=== PATIENT | male | born 1970 | race Caucasian/White ===

== ENCOUNTER 2018-05-05 06:56 | Inpatient (IN) | payer OTHER ==
[2018-04-16 19:08] VITALS: BMI 29.5
[2018-05-05] MEDS ORDERED: TAMSULOSIN HCL 0.4 MG CAP.ER.24H (FP) ONE (08:17)
[2018-05-05] MEDS ORDERED: BUPIVACAINE LIPOSOME/PF (EXPAREL) 266 MG/20 ML VIAL ONE (09:35)
[2018-05-05] MEDS ORDERED: MIDAZOLAM HCL 2 MG/2 ML SINGLE DOSE VIAL ONE (09:35)
[2018-05-05] MEDS ORDERED: BUPIVACAINE HCL/PF (5 MG/ML) 30 ML VIAL IJ ONE (09:35)
[2018-05-05] MEDS ORDERED: LIDOCAINE HCL/PF 2% SDV 5ML VIAL ONE (10:13)
--- NOTE | 2018-05-05 10:13 | HP ---
DATE OF ADMISSION: 05/05/2018 REASON FOR ADMISSION: Chronically incarcerated ventral hernia. BRIEF HISTORY: This is a 48-year-old gentleman with a known chronically large ventral hernia. It is causing him discomfort and he now wishes to have this repaired. PAST MEDICAL HISTORY: Significant for coronary disease, hypertension, diabetes. PAST SURGICAL HISTORY: Bilateral laparoscopic inguinal herniorrhaphy (Vance). MEDICATIONS: None. ALLERGIES: PENICILLIN. 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 He does not smoke nor drink. PHYSICAL EXAMINATION:Abdomen: Soft, nontender, nondistended. He has an upper midline diastasis. He has a large chronically incarcerated ventral hernia. The skin overlying the hernia is mildly thin. IMPRESSION/PLAN: Large chronically incarcerated ventral hernia. Patient is symptomatic from this and therefore we will plan for an operative repair. Due to the size of the hernia the patient will most likely require component separation as well, but this will be determined at the time of surgery. Please refer to my H & P dictated back in January for complete details. Charlotte PETTY [id number]
[2018-05-05] MEDS ORDERED: PROPOFOL 20 ML ONE (10:14)
[2018-05-05] MEDS ORDERED: DEXAMETHASONE SOD PHOSPHATE 4 MG/1 ML VIAL ONE (10:23)
[2018-05-05] MEDS ORDERED: ceFAZolin SODIUM 1 GM VIAL ONE ×2 (10:23→10:30)
[2018-05-05] MEDS ORDERED: ONDANSETRON 4 MG/2 ML VIAL ONE (10:23)
[2018-05-05] MEDS ORDERED: HYDROmorphone HCL/PF 1 MG/ML AMP ONE ×2 (10:27→11:46)
[2018-05-05] MEDS ORDERED: oxyCODONE HCL 5 MG TABLET PO PRN (12:22)
[2018-05-05] MEDS ORDERED: morphine CARPU-JECT 10 MG/1 ML DISP.SYRIN IVPB PRN (12:22)
[2018-05-05] MEDS ORDERED: ONDANSETRON 4 MG/2 ML VIAL IVPUSH PRN (12:27)
--- NOTE | 2018-05-05 13:09 | OP ---
DATE OF OPERATION: 05/05/2018 PREOPERATIVE DIAGNOSIS: A chronically incarcerated ventral hernia. POSTOPERATIVE DIAGNOSIS: A chronically incarcerated ventral hernia. PROCEDURE: Open repair of chronically incarcerated ventral incisional hernia with mesh, bilateral component separation, partial omentectomy. SURGEON: Matthew Eid MD BOAT LOADER: Jayson Bee MD ANESTHESIA: Marlena Flower MD (general), ESTIMATED BLOOD LOSS: Minimal. SPECIMEN: Portion of omentum. INDICATIONS/PROCEDURE: This is a 48-year-old gentleman symptomatic from a large chronically incarcerated ventral midline hernia. He is now here for operative repair. Patient was identified and appropriately positioned on the operating room table. After placement of general anesthesia, he was prepped and draped in the usual sterile fashion with ChloraPrep. A midline incision overlying the hernia was made deep in the subcutaneous tissue. The hernia from the dermis of the overlying skin with sharp dissection. The dissection now taken down to the level of the fascia, and hernia sac circumferentially isolated. Next, the sac was opened. It contained incarcerated fat and omentum. This was excised sharply, and the sac oversewn with interrupted 3-0 Maxon suture. The hemostasis of the omentum was achieved with direct cautery. Next, the sac reduced back beneath the subfascial plane. The fascia of the rectus muscle on the right identified, divided. The posterior rectus space was subsequently developed with blunt dissection out to the perforating vessels. Just medial to the perforating vessels, the fascia was then divided sharply approximately 4 inches above and below the actual defect. This myofascial separation of the transversus from the rectus and obliques was done to allow placement of a large piece of mesh. Next, a similar approach was used on the left side. The left posterior sheath was divided sharply. The retrorectus space developed bluntly out laterally to the perforating vessels, and again, the transversus was from the obliques and rectus sharply. The myofascial separation ensued approximately 4 inches above and below the actual defect. The midline, the patient had a moderate diastasis. The rectus was thin, but left intact. Next, the postoperative field was examined, noted to be hemostatic. The posterior sheath was then reapproximated with a running locking 3-0 Maxon suture. The sutures were placed in the 4-to-1 suturing technique. The defect measured, and a large 20 x 20 piece of Versatex along with a 10 x 12 piece of BIB Bio was used for the operative repair. The two pieces of mesh were sewn together with interrupted 3-0 Maxon sutures. The mesh placed into the retrorectus space, fanned out superiorly, medially, and laterally. The mesh had perfect coverage of the defect and then anchored with interrupted AbsorbaTack sutures in a circumferential fashion. Next, the mesh was irrigated, the operative field examined, noted to be hemostatic. The fascia overlying the mesh was reapproximated with a running No. 1 PDS suture. The subcutaneous space was irrigated, and skin closed with carter. At the conclusion of this case, sponge and instrument counts were correct. ATTESTATION: Brief operative note handwritten on the preprinted form. [facility] will be queried prior to giving any narcotics. MATTHEW EID M.D. [id number]
[2018-05-05] MEDS: oxyCODONE HCL 5 MG TABLET PO PRN ×2 (15:37→21:31)
[2018-05-06 06:35] VITALS: TEMP 98.3
--- NOTE | 2018-05-06 09:02 | PN ---
Progress Note, Physician Chief Complaint: day 1 s/p repair ventral hernia - Current Medication List Current Medications: Active Medications Enoxaparin Sodium (Lovenox -) 40 mg SQ DAILY SILAS Lactated Ringer's (Lactated Ringers Solution) 1,000 mls @ 125 mls/hr IV ASDIR SILAS Potassium Chloride/Dextrose/Sod Cl (D5-1/2ns+20 Meq Kcl -) 20 meq in 1,000 mls @ 75 mls/hr IV ASDIR SILAS Morphine Sulfate (Morphine Injection -) 8 mg IVPB Q3H PRN PRN Reason: PAIN LEVEL 7 - 10 Ondansetron HCl (Zofran Injection) 4 mg IVPUSH Q6H PRN PRN Reason: NAUSEA AND/OR VOMITING Last Admin: 05/05/18 12:41 Dose: 4 mg Oxycodone HCl (Roxicodone -) 5 mg PO Q4H PRN PRN Reason: PAIN LEVEL 1-3 Last Admin: 05/05/18 21:31 Dose: 5 mg Oxycodone HCl (Roxicodone -) 7.5 mg PO Q4H PRN PRN Reason: PAIN LEVEL 4 - 6 Last Admin: 05/06/18 06:07 Dose: 7.5 mg Pantoprazole Sodium (Protonix Iv) 40 mg IVPUSH DAILY [facility] - Objective Vital Signs: Vital Signs Temperature 98.3 F 05/06/18 06:00 Pulse Rate 53 L 05/06/18 06:00 Respiratory Rate 20 05/06/18 06:00 Blood Pressure 138/78 05/06/18 06:00 O2 Sat by Pulse Oximetry (%) 95 05/06/18 06:00 Assessment/Plan Pt sitting comfortably in bed, reading. Pain well tolerated, no anesthetic issues/complications
[2018-05-06 09:36] VITALS: BP 122/74; PULSE 59
[2018-05-06] MEDS: oxyCODONE HCL 5 MG TABLET PO PRN (09:37)
[2018-05-06] MEDS: D5-1/2NS+20 MEQ KCL - 20 MEQ/1,000 ML INFUS.BAG IV SCH ×2 (09:48→13:27)
[2018-05-06] MEDS: LACTATED RINGERS SOLUTION 1,000 ML IV SCH ×2 (09:49→13:27)
[2018-05-06] MEDS ORDERED: ENOXAPARIN NA (PORCINE) 40 MG/0.4 ML DISP.SYRIN SQ SCH (10:00)
[2018-05-06] MEDS ORDERED: PANTOPRAZOLE SODIUM 40 MG VIAL IVPUSH SCH (10:00)
--- NOTE | 2018-05-06 10:15 | DS ---
DATE OF ADMISSION: 05/05/2018 DATE OF DISCHARGE: 05/06/2018 ADMITTING DIAGNOSIS: Complex abdominal wall hernia. DISCHARGE DIAGNOSIS: Complex abdominal wall hernia. BRIEF HISTORY: This is a 48-year-old male who was admitted to [facility] for surgical management of a complex ventral hernia. He had surgery on May 05, utilizing component separation, myofascial release and mesh. Pleas reference Dr. Matthew Vance's operative note for further details. DISPOSITION: The patient is being discharged home today, May 06, tolerating a diet. He is ambulating. He is voiding. His pain is well-controlled with oral narcotics. At the time of his discharge, he is afebrile. DISCHARGE MEDICATIONS: The patient will go home with a new prescription for Percocet. He does not have any home medications to continue. DISCHARGE INSTRUCTIONS: The patient is okay to shower, okay to walk. Do not lift anything more than 20 pounds. He will likely require 2 weeks off from work. He will go home on a regular diet. FOLLOWUP: The patient will follow up with Dr. Vance in approximately 2 weeks' time for his postoperative checkup. DO SABRINA ORELLANA/[id number]
== END 2018-05-06 13:08 | disposition home or self-care (01) | DRG 227 ==
LOC: FASU 06:56 → FM/S 12:22
PROVIDERS: ADMIT Surgery; ATTEND Surgery
PROC: 0DBU0ZZ Excision of Omentum, Open Approach (ICD-10-PCS; 2018-05-05)
PROC: 0WUF0JZ Supplement Abdominal Wall with Synthetic Substitute, Open Approach (ICD-10-PCS; principal; 2018-05-05 10:32)
DX: K43.6 Other and unspecified ventral hernia with obstruction, without gangrene (principal); I25.10 Atherosclerotic heart disease of native coronary artery without angina pectoris; E11.9 Type 2 diabetes mellitus without complications; I10 Essential (primary) hypertension